=== PATIENT | female | born 1960 | race Caucasian/White ===

== ENCOUNTER 2016-08-30 14:34 | Emergency (ER) | payer BC ==
[~2016-08-30] VITALS: Ht 157.5 cm; Wt 61.2 kg
--- NOTE | 2016-08-30 15:22 | PHYS DOC ---
Past Medical History Past Medical History: Arthritis, Diverticulitis Additional Past Medical Histor: DDD, Chronic Back Pain Past Surgical History: Tonsillectomy Additional Past Surgical Histo: L5-S1 Fusion, C2-C3 Fusion, Left thumb, Colostomy with takedown Alcohol Use: None Drug Use: None Adult General Chief Complaint Chief Complaint: BACK PAIN OR INJURY HPI HPI D5-year-old female with a distant history of lumbar fusion now complaining of low back pain beyond her baseline after fall off a horse. Earlier today patient states she fell off a horse and landed on her buttocks. Her low back pain has been hurting worse than usual chronic pain since that time. It's unrelieved by her muscle relaxant as well as her hydrocodone regimen. Normal bowel and bladder habits. No numbness or weakness to the legs. Patient is able to ambulate with this mild discomfort.no incontinence of bowel or bladder. Review of Systems Review of Systems Constitutional: Denies fever or chills [] Eyes: Denies change in visual acuity, redness, or eye pain [] HENT: Denies nasal congestion or sore throat [] Respiratory: Denies cough or shortness of breath [] Cardiovascular: No additional information not addressed in HPI [] GI: Denies abdominal pain, nausea, vomiting, bloody stools or diarrhea [] : Denies dysuria or hematuria [] Musculoskeletal: Denies back pain or joint pain [] Integument: Denies rash or skin lesions [] Neurologic: Denies headache, focal weakness or sensory changes [] Endocrine: Denies polyuria or polydipsia [] Current Medications Current Medications Current Medications Medications (Trade) Dose Ordered Sig/Tracy Start Time Stop Time Status Last Admin Dose Admin Hydromorphone HCl (Dilaudid) 1 mg 1X ONCE 08/30/16 15:30 08/30/16 15:31 DC 08/30/16 15:37 1 MG Ketorolac Tromethamine (Toradol Im) 60 mg 1X ONCE 08/30/16 15:30 08/30/16 15:31 DC 08/30/16 15:37 60 MG Allergies Allergies Allergies Coded Allergies Type Severity Reaction Last Updated Verified Penicillins Allergy Unknown 08/30/16 Yes Sulfa (Sulfonamide Antibiotics) Allergy Unknown 08/30/16 Yes cephalexin Allergy Unknown 08/30/16 Yes erythromycin base Allergy Unknown 08/30/16 Yes metronidazole Allergy Unknown 08/30/16 Yes tetracycline Allergy Unknown 08/30/16 Yes Physical Exam Physical Exam Well-appearing female in no acute distress alert communicative and appropriate. Clear lungs regular rhythm nontender T-spine no L-spine bony tenderness or step off. Right lumbar paraspinal soft tissue tenderness. Nontender stable pelvis. No hip pain or tenderness with movement. No saddle anesthesia. Negative straight leg raise bilaterally. Normal symmetrical strength sensation and reflexes bilateral lower extremities Constitutional: Well developed, well nourished, no acute distress, non-toxic appearance. []. HENT: Normocephalic, atraumatic, bilateral external ears normal, oropharynx moist, no oral exudates, nose normal. [] Eyes: PERRLA, EOMI, conjunctiva normal, no discharge. [] Neck: Normal range of motion, no tenderness, supple, no stridor. [] Cardiovascular:Heart rate regular rhythm, no murmur [] Lungs & Thorax: Bilateral breath sounds clear to auscultation [] Abdomen: Bowel sounds normal, soft, no tenderness, no masses, no pulsatile masses. [] Skin: Warm, dry, no erythema, no rash. [] Back: As above no CVA tenderness. [] Extremities: No tenderness, no cyanosis, no clubbing, ROM intact, no edema. [] Neurologic: Alert and oriented X 3, normal motor function, normal sensory function, no focal deficits noted. [] Psychologic: Affect normal, judgement normal, mood normal. [] Current Patient Data Vital Signs Vital Signs Date Time Temp Pulse Resp B/P (MAP) Pulse Ox O2 Delivery O2 Flow Rate FiO2 08/30/16 16:20 70 18 122/70 (87) 95 08/30/16 15:30 96.0 08/30/16 14:40 98.0 Room Air 98.0 EKG EKG [] Radiology/Procedures Radiology/Procedures X-ray of the L-spine and pelvis pending [] X-ray pelvis chronic changes no acute bony abnormality. X-ray L-spine with chronic bony abnormality anterior superior aspect of L1 however this is not clinically relevant as patient's pain is in the L3-4-5 right paraspinal distribution. Remainder L spine unremarkable with no evidence of acute injury Course & Med Decision Making Course & Med Decision Making Pertinent Labs and Imaging studies reviewed. (See chart for details) Signs and symptoms consistent with lumbar strain in patient with a history of chronic low back pain. No spinal tenderness or step-off. No critical signs of cauda equina syndrome or sciatica. Nonfocal neurologic exam with no saddle anesthesia and neurovascularly intact bilateral lower extremities. X-rays pending to rule out less likely possibility of acute bony involvement. Dilaudid and Toradol given IM. X-rays were unremarkable patient agrees with outpatient follow-up with PCP tomorrow, and strict return precautions will be given. [] Dragon Disclaimer Dragon Disclaimer This electronic medical record was generated, in whole or in part, using a voice recognition dictation system. Departure Departure Impression: Primary Impression: Lumbar strain Additional Impression: Low back pain Disposition: HOME, SELF-CARE Condition: IMPROVED Referrals: MIA ALVES (PCP) Patient Instructions: Low Back Strain with [facility]hab[facility] Additional Instructions: It appears that you have low back strain also known as lumbar strain today after your fall. Your x-ray showed no acute fractures. Apply ice as needed for the next 1-2 days. Take ibuprofen every 6 hours and use her muscle relaxant and narcotic analgesic regimen as needed as previously prescribed. Follow-up with your doctor tomorrow and return immediately for new severe or worsening symptoms specifically weakness in her legs or incontinence of bowel or bladder or other new severe or worsening symptoms Problem Qualifiers PING JORDAN MD Aug 30, 2016 15:22
[2016-08-30] MEDS ORDERED: KETOROLAC TROMETHAMINE 60 MG/2 ML INJ. IM ONE (15:30)
[2016-08-30] MEDS ORDERED: HYDROmorphone 2 MG/ML VIAL IM ONE (15:30)
[2016-08-30 16:20] VITALS: BP 122/70
--- NOTE | 2016-08-31 09:13 | RAD ---
Examination: 2 views of the lumbar spine History: History of trauma, fall, pain Comparison: None available Findings: The vertebral body heights are maintained. No evidence of listhesis is identified. Anterior lumbar fusion hardware identified at L5-S1 vertebral level. Mild degenerative changes identified in the facet joints. Impression: 1. No acute osseous findings.
--- NOTE | 2016-08-31 09:16 | RAD ---
Examination: Single frontal view of the pelvis History: History of fall, pain Comparison: None available Findings: The bilateral femoral heads are within the acetabulum. Mild degenerative changes identified in the bilateral hip joints. There is no acute fracture identified. Lumbosacral fusion hardware identified at L5-S1 vertebral level. Impression: No acute osseous findings.
== END 2016-08-30 16:46 | disposition home or self-care (01) ==
LOC: ER 14:34
DX: S39.012A Strain of muscle, fascia and tendon of lower back, initial encounter (principal); M19.90 Unspecified osteoarthritis, unspecified site; G89.29 Other chronic pain; Z88.0 Allergy status to penicillin; Z88.2 Allergy status to sulfonamides; Z88.1 Allergy status to other antibiotic agents; V80.010A Animal-rider injured by fall from or being thrown from horse in noncollision accident, initial encounter; Y93.52 Activity, horseback riding; Y92.89 Other specified places as the place of occurrence of the external cause; Y99.8 Other external cause status
CPT/HCPCS: 72100; 72170; 96372; 99284; J1170; J1885